=== PATIENT | male | born 1960 | race Caucasian/White ===

== ENCOUNTER 2018-11-08 08:00 | Outpatient (CLI) | payer BC ==
[2018-11-08] MEDS ORDERED: CHOL2000 PO (11:18)
[2018-11-08] MEDS ORDERED: FIBER PO (11:18)
[2018-11-08] MEDS ORDERED: CALCIUM PO (11:18)
[2018-11-08] MEDS ORDERED: INSU100C SQ-INSULIN (11:18)
[2018-11-08] MEDS ORDERED: ACYC-114 PO (11:18)
[2018-11-08] MEDS ORDERED: SIMV20TA3 PO (11:18)
[2018-11-08] MEDS ORDERED: MULT-516 PO (11:18)
[2018-11-08] MEDS ORDERED: LEVO200T5 PO (11:18)
[2018-11-08] MEDS ORDERED: DICL100G29 TP (11:18)
[2018-11-08] MEDS ORDERED: ANAS1TAB PO (11:18)
[2018-11-08 11:37] LABS: MICROSCOPIC NOT IND
[2018-11-08 11:42] LABS: BASOPHILS # (AUTO) 0.03 x10^3/uL (0-0.1); BASOPHILS % (AUTO) 1 % (0-1); EOSINOPHILS # (AUTO) 0.18 x10^3/uL (0-0.4); EOSINOPHILS % (AUTO) 3 % (1-7); LYMPHOCYTES # (AUTO) 1.92 x10^3/uL (1-3.4); LYMPHOCYTES % (AUTO) 28 % (22-44); MD NO; MEAN CORPUSCULAR HEMOGLOBIN 30.6 pg (27.5-34.5); MEAN CORPUSCULAR HGB CONC 33.3 g/dL (33.2-36.2); MEAN CORPUSCULAR VOLUME 91.9 fL (81-97); MEAN PLATELET VOLUME 9.4 fL (7.4-10.4); MONOCYTES # (AUTO) 0.83 x10^3/uL (0.2-0.8); MONOCYTES % (AUTO) 12 % (2-9); NEUTROPHILS # (AUTO) 3.86 x10^3/uL (1.8-6.8); NEUTROPHILS % (AUTO) 57 % (42-75); PLATELET COUNT 203 x10^3/uL (130-400); RED BLOOD COUNT 5.37 x10^6/uL (4.38-5.82); RED CELL DISTRIBUTION WIDTH 12.6 % (9.4-14.8)
[2018-11-08 11:52] LABS: ALANINE AMINOTRANSFERASE 99 U/L (12-78); ALBUMIN 3.7 g/dL (3.4-5.0); ANION GAP 4 mmol/L (5-15); CALCIUM 9.2 mg/dL (8.5-10.1); CHLORIDE 110 mmol/L (98-107); CREATININE 0.85 mg/dL (0.7-1.3)
[2018-11-08 11:55] LABS: ALKALINE PHOSPHATASE 81 U/L (45-117); BILIRUBIN,TOTAL 0.6 mg/dL (0.2-1.0); TOTAL PROTEIN 7.8 g/dL (6.4-8.2)
[2018-11-08 12:09] LABS: INTERNATIONAL NORMALIZED RATIO 1.04 (0.93-1.1); PROTHROMBIN TIME 10.9 Seconds (9.6-11.5)
== END 2018-11-08 23:59 | disposition home or self-care (01) ==
LOC: STAR 08:00
PROVIDERS: ATTEND Urology
DX: D41.3 Neoplasm of uncertain behavior of urethra (principal)
CPT/HCPCS: 36415; 80053; 81003; 85025; 85610; 85730; 87086; 93005

== ENCOUNTER 2018-11-19 09:56 | Day surgery (SDC) | payer BC ==
[2018-11-08 11:33] VITALS: BP 123/76
[~2018-11-19] VITALS: Ht 167.6 cm; Wt 96.8 kg
[~2018-11-19 09:56] MED LIST: ACYC-114 PO; ALBUTEROL SULFATE 2.5 MG/3 ML NPPB PRN; ANAS1TAB PO; CALCIUM PO; CHOL2000 PO; DICL100G29 TP; DIPHENHYDRAMINE 50 MG/ML, 1ML IVPush PRN; FIBER PO; HALOPERIDOL 5 MG/ML IV PRN; HYDROmorphone 2 MG/ML, 1ML IVPush PRN; INSU100C SQ-INSULIN; LABETALOL 5MG/ML, 20ML IV PRN; LEVO200T5 PO; MEPERIDINE/PF 25MG/0.5ML IVPush PRN; METOPROLOL 1 MG/ML, 5ML IV PRN; MULT-516 PO; PROCHLORPERAZINE 5 MG/ML, 2ML IV PRN; PROMETHAZINE 25 MG/ML, 1ML IV PRN; SIMV20TA3 PO; hydrALAzine 20 MG/ML, 1ML IV PRN
[2018-11-19] MEDS ORDERED: LACTATED RINGERS 1,000 ML IV SCH (10:25)
[2018-11-19] MEDS ORDERED: KETOROLAC 30 MG/1 ML ONE (10:30)
[2018-11-19] MEDS ORDERED: ONDANSETRON 2MG/ML, 2ML ONE (10:30)
[2018-11-19] MEDS ORDERED: PROPOFOL 10 MG/ML, 20ML ONE (10:30)
[2018-11-19] MEDS ORDERED: CEFAZOLIN 1,000 MG ONE (10:30)
[2018-11-19] MEDS ORDERED: GABAPENTIN 300 MG CAPSULE PO ONE (10:30)
[2018-11-19] MEDS ORDERED: ACETAMINOPHEN 500 MG TABLET PO ONE (10:30)
[2018-11-19] MEDS ORDERED: FENTANYL PF 100 MCG/2ML ONE (12:36)
[2018-11-19] MEDS ORDERED: SCOPOLAMINE PATCH, 1.5MG PATCH.TD72 TD ONE (12:48)
[2018-11-19] MEDS ORDERED: DEXTROSE 50%, 50ML SYRINGE ONE (14:05)
[2018-11-19] MEDS ORDERED: OXYcodone 5 MG/5 ML ORAL.SOL UDC ONE (14:14)
[2018-11-19] MEDS: OXYcodone 5 MG/5 ML ORAL.SOL UDC PO PRN ×2 (14:14→14:51)
[2018-11-19] MEDS: FENTANYL PF 100 MCG/2ML IV PRN ×2 (14:30→14:45)
[2018-11-19] MEDS ORDERED: DEXTROSE 50%, 50ML SYRINGE IVPush ONE (14:30)
== END 2018-11-19 16:15 | disposition home or self-care (01) ==
LOC: OUT 09:56
PROVIDERS: ATTEND Urology
DX: C68.0 Malignant neoplasm of urethra (principal); N35.812 Other bulbous urethral stricture, male; J45.909 Unspecified asthma, uncomplicated; E11.9 Type 2 diabetes mellitus without complications; E03.9 Hypothyroidism, unspecified; Z88.5 Allergy status to narcotic agent; Z90.49 Acquired absence of other specified parts of digestive tract; Z98.890 Other specified postprocedural states; Z79.4 Long term (current) use of insulin
CPT/HCPCS: 52276; 52601; 82962; 88305; J0690; J1885; J2405; J2704; J3010; J7120